=== PATIENT | male | born 1955 | race Caucasian/White ===

== ENCOUNTER 2020-07-08 13:11 | Emergency (ER) | payer MEDICARE, SELFPAY ==
[2020-07-08 13:12] VITALS: BP 148/91; PULSE 107; RESP 16; TEMP 36.6; O2SAT 96; BMI 24.3
--- NOTE | 2020-07-08 13:26 | RAD_ITS ---
STUDY: X-RAY - RIGHT ANKLE REASON FOR EXAM: Male, 64 years old. Pain and swelling of the right ankle following twisting injury today TECHNIQUE: 3 view(s) of the ankle. COMPARISON: None. FINDINGS: Normal visualized distal tibia and fibula. Nondisplaced transverse fracture of the inferior most distal fibula with overlying soft tissue swelling. Normal tibiotalar articulation and ankle mortise. Normal visualized talus and calcaneus. The visualized subtalar, talonavicular, calcaneocuboid and tarsal articulations are normal. The soft tissue structures are otherwise unremarkable. RAD/Ankle min 3 Views IMPRESSION: SNYDER A lateral malleolus fracture. Electronically Signed: Giuseppe Marrero MD ([place]) at 13:48 EDT , Service support ,
--- NOTE | 2020-07-08 13:28 | EDS_ITS ---
HPI History of Present Illness Chief Complaint: Lower Extremity Injury Onset/Context/Timing Onset: Today Context: Sudden Onset Timing: Continuous Quality of Pain: Aching Current Severity: Mild Maximum Severity: Moderate Worsened by: weight-bearing, moving Relieved by: resting Associated Symptoms Associated Symptoms: Negative for Parasthesia, Weakness and Loss of Funtion Narrative Narrative: Patient was using a jackhammer on a concrete slab of a front porch, when the sled gave way and he slid off of it, dropped a jackhammer, and as he landed on the ground his right ankle inverted/twisted and he felt worse pain than with prior sprains. He has been able to bear weight on it. He denies any other injury. [facility] Medical History Glaucoma Home Medications dorzolamide-timolol [Cosopt] 1 drp OPHTHALMIC (EYE) DAILY 07/08/20 [History Last Taken Unknown] latanoprostene bunod [Vyzulta] 1 drp OPHTHALMIC (EYE) DAILY 07/08/20 [History Last Taken Unknown] Allergy/AdvReac Type Severity Reaction Status Date / Time No Known Allergies Allergy Verified 07/08/20 13:55 Surgical History History of appendectomy Social History (Updated 07/08/20 @ 13:[address] David Lugo MD) household members: spouse Smoking Status: Never smoker ROS ROS ED Constitutional Constitutional ED: Denies chills or fever(s) Musculoskeletal Musculoskeletal: Reports extremity pain; Denies neck pain Integumentary Denies Abrasions, rash or wounds Neurologic Neurologic: Denies paresthesias or weakness EXAM Physical Exam Const Vital Signs: 07/08/20 13:12 Temperature 97.9 F Temperature Source Temporal Pulse Rate 107 H Respiratory Rate 16 Blood Pressure 148/91 H Blood Pressure Mean 110 Pulse Ox 96 Oxygen Delivery Method Room Air Positive well nourished and well developed General Appearance ED: well developed and NAD Neck full ROM and supple Back/Spine normal ROM and normal to inspection Extremity Right Lower Extremity: ankle joint inspection (swollen lateral malleolous), palpation (Tender lateral malleolus only. Medial malleolus nontender, as are base of fifth metatarsal, rest of the fibula including proximal fibula, midfoot, forefoot.), ROM (limted in extremes) and neurovascular exam (normal) Neuro oriented x3, no focal motor deficits and no sensory deficits noted Sensorium / Orientation: alert Psych mental status grossly normal and thought process normal Skin no wounds Rashes: no rashes MDM MDM MDM Narrative Medical decision making narrative: Patient has presenting for pain but did not want anything narcotic, was given a dose of ibuprofen. On my interpretation 3 view x-ray of the right ankle shows a nondisplaced distal fibula fracture as confirmed by radiology below. He was placed in a walking boot and will follow up with orthopedics. He was offered but did not require crutches. Radiography Diagnostic Testing: Radiology Impression Ankle X-Ray 07/08/20 13:26 IMPRESSION: SNYDER A lateral malleolus fracture. Electronically Signed: Giuseppe Marrero MD ([place]) at 13:48 EDT , Service support , Discharge Plan Triage Chief Complaint: Lower Extremity Injury ED Provider: David Lugo Dx/Rx/DC Orders Clinical Impression: Closed avulsion fracture of distal end of right fibula Instructions: ED Ankle Fracture Prescriptions: No Action dorzolamide-timolol [Cosopt] 22.3-6.8 mg/mL drops 1 drp OPHTHALMIC (EYE) DAILY RF: 0 Vyzulta 0.024 % drops 1 drp OPHTHALMIC (EYE) DAILY RF: 0 Primary Care Provider: NOT,DEFINED Referrals: Aiden Jeffers MD [STAFF PHYSICIAN] - 1 Week (call for appt) NOT,DEFINED [Primary Care Provider] - Activity Restrictions/Additional Instructions: Weight bearing as tolerated in boot; may take off for bed/shower/bath. Disposition Disposition: Home, self care
== END 2020-07-08 15:11 | disposition home or self-care (01) ==
LOC: ED 14:13
PROVIDERS: Emergency Provider Emergency Medicine; PCP Family Medicine
DX: S82.64XA Nondisplaced fracture of lateral malleolus of right fibula, initial encounter for closed fracture (principal); X50.1XXA Overexertion from prolonged static or awkward postures, initial encounter; Y93.89 Activity, other specified; Y92.89 Other specified places as the place of occurrence of the external cause; Y99.9 Unspecified external cause status
CPT/HCPCS: 73610; 99282